=== PATIENT | male | born 1955 | race Two or more races ===

== ENCOUNTER 2018-01-18 10:59 | Outpatient (CLI) | payer OTHER ==
[~2018-01-18 10:59] MED LIST: ENALAPRIL MALEA10 MG; GLIPIZIDE10 MG; GLUCOPHAGE XR500 MG PO; Glucophage PO; HumaLOG 100 UNIT/1 ML (3ML) SUBCUTANEO; Hyzaar 50-12.5 Tablet PO; INDUR; Imdur 60MG PO; METFORMIN HCL1000 MG; METROPOL; Micronase PO; NEURONTIN300 MG; NEURONTIN800 MG PO; NORFLEX100MG PO; Neurontin PO; PLATEL; SEPTRA DS TABLE1 TAB PO; TOPROL 100 MG PO; TRAMADOL HCL-AP1 TAB PO; Toprol Xl 50MG TAB PO; ULTRAM50 MG PO; [UNRECOGNIZED DRUG - OTHER]
== END 2018-01-18 11:12 | disposition home or self-care (01) ==
LOC: LAB 10:59
DX: E11.65 Type 2 diabetes mellitus with hyperglycemia (principal); E78.2 Mixed hyperlipidemia; I87.2 Venous insufficiency (chronic) (peripheral)

== ENCOUNTER 2018-06-27 14:21 | Outpatient (CLI) | payer OTHER | END 2018-06-27 15:19 | disposition home or self-care (01) | LOC: NUCLEAR 14:21 | DX: I20.1 Angina pectoris with documented spasm (principal); I10 Essential (primary) hypertension | CPT/HCPCS: A9500; 93017; 78452 ==

== ENCOUNTER 2018-09-25 10:46 | Emergency (ER) | payer OTHER ==
[~2018-09-25] VITALS: Ht 175.3 cm; Wt 88.0 kg
[2018-09-25] MEDS ORDERED: NORFLEX100MG PO (13:58)
[2018-09-25] MEDS ORDERED: DOLOGESIC 500-1 EACH PO (13:58)
== END 2018-09-25 14:29 | disposition home or self-care (01) ==
LOC: ER 10:46
DX: R10.11 Right upper quadrant pain (principal); R10.31 Right lower quadrant pain

== ENCOUNTER 2018-10-24 15:56 | Outpatient (CLI) | payer OTHER ==
[~2018-10-24 15:56] MED LIST changes: +DOLOGESIC 500-1 EACH PO
== END 2018-10-24 16:05 | disposition home or self-care (01) ==
LOC: LAB 15:56
DX: I77.6 Arteritis, unspecified (principal)

== ENCOUNTER 2018-12-04 09:22 | Outpatient (CLI) | payer OTHER | END 2018-12-04 10:00 | disposition home or self-care (01) | LOC: NUCLEAR 09:22 | DX: G45.3 Amaurosis fugax (principal) ==

== ENCOUNTER → 2019-03-05 | Outpatient (CLI) | payer OTHER | END | disposition home or self-care (01) | LOC: NUCLEAR 15:26 | DX: I87.2 Venous insufficiency (chronic) (peripheral) (principal); L97.921 Non-pressure chronic ulcer of unspecified part of left lower leg limited to breakdown of skin ==

== ENCOUNTER → 2019-04-14 | Emergency (ER) | payer OTHER ==
[~2019-04-14] VITALS: Ht 175.3 cm; Wt 88.0 kg
== END | disposition left against medical advice (07) ==
LOC: ER 16:52
DX: S13.4XXA Sprain of ligaments of cervical spine, initial encounter (principal); S20.212A Contusion of left front wall of thorax, initial encounter; V49.9XXA Car occupant (driver) (passenger) injured in unspecified traffic accident, initial encounter; Y93.89 Activity, other specified; Y92.488 Other paved roadways as the place of occurrence of the external cause; Y99.8 Other external cause status

== ENCOUNTER 2019-09-28 19:50 | Emergency (ER) | payer OTHER ==
[~2019-09-28] VITALS: Ht 175.3 cm; Wt 88.5 kg
[2019-09-28] MEDS ORDERED: TOPROL XL100 M1 (20:08)
[2019-09-28] MEDS ORDERED: GLIPIZIDE XL10 MG (20:09)
[2019-09-28] MEDS ORDERED: ISOSORBIDE MONO60 MG (20:10)
== END 2019-09-28 21:51 | disposition home or self-care (01) ==
LOC: ER 19:50
DX: M62.830 Muscle spasm of back (principal); S80.11XS Contusion of right lower leg, sequela; S30.0XXS Contusion of lower back and pelvis, sequela; V49.88XS Car occupant (driver) (passenger) injured in other specified transport accidents, sequela

== ENCOUNTER 2019-09-30 19:45 | Emergency (ER) | payer OTHER ==
[~2019-09-30] VITALS: Ht 175.3 cm; Wt 88.0 kg
[~2019-09-30 19:45] MED LIST changes: +GLIPIZIDE XL10 MG; +ISOSORBIDE MONO60 MG; +TOPROL XL100 M1
== END 2019-10-01 05:57 | disposition home or self-care (01) ==
LOC: ER 19:45
DX: R42 Dizziness and giddiness (principal); E11.65 Type 2 diabetes mellitus with hyperglycemia

== ENCOUNTER 2020-11-24 | Outpatient (CLI) | payer OTHER ==
[~2020-11-24] MED LIST changes: +LIDODERM1 EACH TOP; +LODINE XL500 MG PO
== END 2020-11-24 09:35 | disposition home or self-care (01) ==
LOC: PPH VACUNA
PROVIDERS: ATTEND Emergency Medicine Pediatric Emergency Medicine
DX: Z23 Encounter for immunization (principal)

== ENCOUNTER → 2020-12-15 | Outpatient (CLI) | payer OTHER | END | disposition home or self-care (01) | LOC: PPH VACUNA | PROVIDERS: ATTEND Emergency Medicine Pediatric Emergency Medicine | DX: Z23 Encounter for immunization (principal) ==